=== PATIENT | female | born 1970 | race Caucasian/White ===

== ENCOUNTER → 2019-10-27 | Outpatient (CLI) | payer OTHER ==
--- NOTE | 2019-10-27 09:48 | RAD ---
Examination: Ultrasound abdomen complete HISTORY: History of pancreatitis COMPARISON: None available. FINDINGS: The liver length measures 16.3 cm. The common bile duct measures 2.5 mm in diameter. The gallbladder wall thickness measures 1.1 mm. Echogenicity identified in the gallbladder likely sludge. The right kidney is 11.8 x 4.7 x 4.5 cm. The left kidney measuring 4.0 x 3.6 cm. The pancreas is poorly visualized. The spleen measures 10.3 cm in length. IMPRESSION: 1. Gallbladder sludge. Contracted appearance of the gallbladder. Electronically signed by: Pedro Epps MD (10/27/2019 9:46 AM) [id number]
== END ==
LOC: US 08:46
PROVIDERS: ATTEND Family Medicine
DX: K86.9 Disease of pancreas, unspecified (principal); K82.0 Obstruction of gallbladder
CPT/HCPCS: 76700